=== PATIENT | female | born 1935 | race Caucasian/White ===

== ENCOUNTER 2018-10-20 12:37 | Emergency (ER) | payer MEDICARE, BC ==
[~2018-10-20] VITALS: Wt 75.0 kg
[~2018-10-20 12:37] MED LIST: GLIM2TAB47; HYDROCHLORIZIDE; SAXA2.5T; SIMV40TA3 PO; VALS160T20; [UNRECOGNIZED DRUG - REMARK]
[2018-10-20] MEDS ORDERED: ATOR20TA38 PO (14:01)
[2018-10-20] MEDS ORDERED: GLIM4TAB55 PO (14:02)
[2018-10-20] MEDS ORDERED: CLON-379 PO (14:02)
[2018-10-20] MEDS ORDERED: AMLO5TAB4 PO (14:02)
[2018-10-20] MEDS ORDERED: ALLO100T PO (14:03)
--- NOTE | 2018-10-20 14:43 | ERD ---
ER Documentation Chief Complaint Chief Complaint RIGHT KNEE PAIN AFTER A [facility] FALL HPI Extremely pleasant 83-year-old female who had a mechanical trip and fall just prior to arrival. The patient fell forward landing directly on her right patella. The patient has pain and some difficulty with full extension of the right lower extremity. Limited weightbearing after the fall. She denies any wrist pain arm pain headache or head injury. She notes the pain to be moderate at this time and worse to touch. She is refusing pain medication. ROS All systems reviewed and are negative except as per history of present illness. Medications Home Meds Reported Medications Allopurinol* (Allopurinol*) 100 Mg Tablet, 100 MG PO DAILY, TAB 10/20/18 Amlodipine Besylate* (Norvasc*) 5 Mg Tablet, 5 MG PO BID, TAB 10/20/18 Clonidine Hcl* (Clonidine Hcl*) 0.1 Mg Tab, 0.1 MG PO DAILY, TAB 10/20/18 Glimepiride* (Amaryl*) 4 Mg Tablet, 4 MG PO WITH BREAKFAST DINNE, TAB 10/20/18 Atorvastatin Calcium* (Atorvastatin Calcium*) 20 Mg Tablet, 20 MG PO QHS, #30 TAB 10/20/18 Discontinued Reported Medications [Hydrochlorizide] No Conflict Check 12/19/12 Saxagliptin Hcl* (Onglyza*) 2.5 Mg Tablet, DAILY 12/19/12 Valsartan* (Diovan*) 160 Mg Tablet, BID 12/19/12 Glimepiride* (Amaryl*) 2 Mg Tablet 12/19/12 Simvastatin (Simvastatin) 40 Mg Tablet, 40 MG PO 12/19/12 [Family Advised To Bring Meds] No Conflict Check 12/19/12 Allergies Allergies: Coded Allergies: No Known Drug Allergy (Verified Allergy, Unknown, 10/20/18) PMhx/Soc History of Surgery: Yes (spinal surgery) Anesthesia Reaction: No Hx Neurological Disorder: No Hx Respiratory Disorders: No Hx Cardiac Disorders: Yes (HTN, HIGH CHOLESTEROL) Hx Psychiatric Problems: No Hx Miscellaneous Medical Probl: Yes (arthritis, DM, htn,gout, reanl dse) Hx Alcohol Use: Yes (WINE ON OCCASION) Hx Substance Use: No Hx Tobacco Use: No FmHx Family History: No diabetes Physical Exam Vitals Vital Signs Date Temp Pulse Resp B/P (MAP) Pulse Ox O2 O2 Flow FiO2 Time Delivery Rate 10/20/18 98.1 80 18 174/80 99 12:41 (111) Physical Exam General: Well developed, well nourished, no acute distress Head: Normocephalic, atraumatic. Eyes: Pupils equally reactive, EOM intact ENT: Moist mucous membranes Neck: Supple, no lymphadenopathy, no midline tenderness, deformities, step-offs to the cervical spine, full active and passive range of motion without midline pain. Respiratory: Lungs clear bilaterally, no distress Cardiovascular: RRR, no murmurs, rubs, or gallops Abdominal: Soft, non-tender, non-distended, no peritoneal signs : Deferred MSK: The patient has soft tissue tenderness and deformity to the lower aspect of the right patella. Slight deficit noted with extension of the right lower extremity at the knee. No ligamentous instability. No other bony abnormalities noted. Neurologic: Alert and oriented, moving all extremities, normal speech, no focal weakness, no cerebellar signs Skin: No rash Psych: Normal mood Procedures/MDM EKG, MONITORS, & DIAGNOSTIC IMAGING: X-ray right knee: I reviewed and interpreted multiple views of the x-ray Bones: Comminuted fracture of the right patella, small effusion Soft tissue: No evidence of foreign body PROCEDURES: PROCEDURES: Splint Application Note: Splint type: Knee immobilizer Extremity: Right lower extremity Indication: Patella fracture The patient was consented at bedside prior to splint application and states understanding of risks, benefits, and alternatives. The patient was neurovascularly intact prior to and status post application of the splint. The patient tolerated the procedure well and there were no complications. MEDICAL DECISION MAKING: Patient with clinical signs and symptoms concerning for patella fracture given deficit of extension at the knee. No other bony abnormalities. No head trauma or neck injury. ER COURSE: * The patient's x-ray imaging confirms patella fracture. She has incomplete rupture as she does have some function with extension. Knee immobilizer has been placed. The patient is quite ambulatory and has appropriate help at home. The patient has a walker with her and education for ambulation with knee immobilizer was provided in the emergency room setting. She will likely do well on an outpatient basis. Outpatient orthopedic follow-up strongly recommended. CONSULTATION: Primary care Dr. Sierra notified DISPOSITION PLAN: The patient does not have an identifiable emergent medical condition that warrants inpatient hospitalization at this time. The patient is deemed safe for discharge with outpatient follow-up. We discussed follow up with the patient's primary care doctor within 24 to 48 hours as needed. We also discussed return to the emergency room for worsening symptoms or worsening condition. Outpatient referral: Ortho at [facility] Discharge Medications: OTC motrin and apap Patient refused pain med in ED setting Departure Diagnosis: Primary Impression: Closed fracture of right patella Encounter type: initial encounter Fracture morphology: comminuted Fracture alignment: nondisplaced Qualified Codes: S82.044A - Nondisplaced comminuted fracture of right patella, initial encounter for closed fracture Condition: Stable Patient Instructions: Patella Fracture Referrals: [facility] Hours: Mon-Fri 9:00 AM - 5:00 PM Additional Instructions: Call your primary care doctor TOMORROW for an appointment during the next 1 WEEK.Tell the paralegal legal secretary that you were referred from this facility.See the doctor sooner or return here if your condition worsens before your appointment time. MERY CORTEZ MD Oct 20, 2018 14:43
== END 2018-10-20 15:53 | disposition home or self-care (01) ==
LOC: E/R 12:37
DX: S82.044A Nondisplaced comminuted fracture of right patella, initial encounter for closed fracture (principal); I10 Essential (primary) hypertension; E11.9 Type 2 diabetes mellitus without complications; W18.30XA Fall on same level, unspecified, initial encounter; Y92.9 Unspecified place or not applicable; Z79.84 Long term (current) use of oral hypoglycemic drugs
CPT/HCPCS: 73562

== ENCOUNTER → 2018-11-16 | Outpatient (CLI) | payer MEDICARE, BC ==
[~2018-11-16] MED LIST changes: +ALLO100T PO; +AMLO5TAB4 PO; +ATOR20TA38 PO; +CLON-379 PO; -GLIM2TAB47; +GLIM4TAB55 PO; -HYDROCHLORIZIDE; -SAXA2.5T; -SIMV40TA3 PO; -VALS160T20; -[UNRECOGNIZED DRUG - REMARK]
--- NOTE | 2018-11-16 14:42 | CONS ---
Consult Date/Type/Reason Admit Date/Time Initial Consult Date Date/Time of Note DATE: 11/16/18 TIME: 14:36 Subjective 83-year-old female following up today for right patella fracture. Date of injury was 10/20/2018. She has been in a hinged knee brace locked in full extension. She has been compliant. She has been weightbearing as tolerated with the knee locked in extension. Patient states her swelling has significantly decreased. She denies any pain. Denies any numbness and tingling. Denies any fever or chills. Objective Vitals Weight: 118 pounds Height: 5 foot 2 inches Temperature: 97.9 Heart Rate: 99 Blood Pressure: 169/79 Respiratory Rate: 14 Exam General: Awake, alert, in no acute distress, pleasant and cooperative Heart: regular rhythm Lungs: breathing comfortably, no tachypnea or dyspnea MUSCULOSKELETAL: Right lower extremity Minimal swelling about the knee. Skin is intact. There is no erythema or ecchymosis. Nontender to palpation. There is some swelling at the ankle. Remainder of leg is not swollen. Sensation intact to light touch in a sural, saphenous, deep peroneal, superficial peroneal, medial and lateral plantar nerve distribution. Motor is intact, patient able to dorsiflex and plantarflex ankle and extend and flex great toe. Dorsalis Pedis pulse +2, Brisk capillary refill. Compartments are soft. Calves non-tender to palpation bilaterally. Results/Medications Home Meds Reported Medications Allopurinol* (Allopurinol*) 100 Mg Tablet, 100 MG PO DAILY, TAB 10/20/18 Amlodipine Besylate* (Norvasc*) 5 Mg Tablet, 5 MG PO BID, TAB 10/20/18 Clonidine Hcl* (Clonidine Hcl*) 0.1 Mg Tab, 0.1 MG PO DAILY, TAB 10/20/18 Glimepiride* (Amaryl*) 4 Mg Tablet, 4 MG PO WITH BREAKFAST DINNE, TAB 10/20/18 Atorvastatin Calcium* (Atorvastatin Calcium*) 20 Mg Tablet, 20 MG PO QHS, #30 TAB 10/20/18 Imaging 2 views of the right knee were obtained today. The AP and lateral images were reviewed by me. Redemonstration of comminuted minimally displaced patella fracture. There is some distraction on the anterior aspect however the articular side appears to be well approximated. There is slight displacement and distraction in comparison to previous x-rays. There is likely a patella bipartite component to this picture. Assessment/Plan Hospital Course (Demo Recall) 83-year-old female 1 month status post right patella fracture. She is being treated nonoperatively. There has been some but minimal displacement and her patella fracture since last x-rays. No healing was currently appreciated but clinically she is doing very well with no pain and no swelling. We will cont inue nonoperative management. Plan: Continue hinged knee brace locked in full extension at all times. Allowed to weight-bear as tolerated with knee locked in full extension. Follow-up 2-3 weeks. At that time obtain new nonweightbearing AP and lateral of the right knee. If x-rays are good we will likely allow 0-30 degrees range of motion in the brace when not weightbearing. SANDRO ORTEGA MD Nov 16, 2018 14:42
--- NOTE | 2018-11-19 07:54 | RADRPT ---
PROCEDURE: Right knee radiographs. CLINICAL INDICATION: Right knee pain. TECHNIQUE: Three views. Frontal, lateral, and oblique. COMPARISON: 10/26/2018. FINDINGS: There is a mildly displaced comminuted fracture of the midportion of the patella with no significant change from the prior study. Healing is progressing. There is no new fracture and there is no disloca tion. Articular surfaces are otherwise intact. Vascular calcifications are present consistent with atherosclerosis. There is soft tissue swelling overlying the patella. There is no lytic or blastic lesion. There is no radiopaque foreign body. IMPRESSION: 1. No change from the 10/26/2018 images of the right knee. RPTAT: QQ .Octavio Forde MD, MD Date Time Electronically viewed and signed by .Octavio Forde MD, on 11/19/2018 07:54 .R/
== END | disposition home or self-care (01) ==
LOC: HKI 13:27
PROVIDERS: ATTEND Orthopaedic Surgery Adult Reconstructive Orthopaedic Surgery
DX: S82.001D Unspecified fracture of right patella, subsequent encounter for closed fracture with routine healing (principal); X58.XXXD Exposure to other specified factors, subsequent encounter; R22.41 Localized swelling, mass and lump, right lower limb
CPT/HCPCS: 73560; G0463

== ENCOUNTER → 2018-11-30 | Outpatient (CLI) | payer MEDICARE, BC ==
--- NOTE | 2018-11-30 17:39 | CONS ---
Consult Date/Type/Reason Admit Date/Time Initial Consult Date Date/Time of Note DATE: 11/30/18 TIME: 17:36 Subjective 83-year-old female 6 weeks status post right nondisplaced patella fracture. She has been treated nonoperatively. She has been in a hinged knee brace locked in full extension. She has been weightbearing as tolerated. She has been following her restrictions and precautions. Denies any pain. She is eager to start range of motion. Objective Vitals Weight: 118 pounds Height: 5 feet 2 inches Temperature: 97.9 Heart Rate: 91 Blood Pressure: 171/70 Respiratory Rate: 14 Exam General: Awake, alert, in no acute distress, pleasant and cooperative Heart: regular rhythm Lungs: breathing comfortably, no tachypnea or dyspnea MUSCULOSKELETAL: Right lower extremity: Skin intact. Mild swelling. Tenderness to palpation of the patella. No pain with range of motion 0-45 degrees Sensation intact to light touch in a sural, saphenous, deep peroneal, superficial peroneal, medial and lateral plantar nerve distribution. Motor is intact, patient able to dorsiflex and plantarflex ankle and extend and flex g reat toe. Dorsalis Pedis pulse +2, Brisk capillary refill. Compartments are soft. Calves non-tender to palpation bilaterally. Results/Medications Home Meds Reported Medications Allopurinol* (Allopurinol*) 100 Mg Tablet, 100 MG PO DAILY, TAB 10/20/18 Amlodipine Besylate* (Norvasc*) 5 Mg Tablet, 5 MG PO BID, TAB 10/20/18 Clonidine Hcl* (Clonidine Hcl*) 0.1 Mg Tab, 0.1 MG PO DAILY, TAB 10/20/18 Glimepiride* (Amaryl*) 4 Mg Tablet, 4 MG PO WITH BREAKFAST DINNE, TAB 10/20/18 Atorvastatin Calcium* (Atorvastatin Calcium*) 20 Mg Tablet, 20 MG PO QHS, #30 TAB 10/20/18 Imaging AP and lateral view of the right knee were obtained in clinic today and personally reviewed: These were compared to previous x-rays. There is a nondisplaced transverse patella fracture. There is interval healing. Assessment/Plan Hospital Course (Demo Recall) 83-year-old female 6 weeks status post right patella fracture. The patella fracture is nondisplaced and has been treated nonoperatively. At this time we will start gentle range of motion. Plan: Range of motion 0-30 degrees in brace Brace to be locked in full extension when ambulating. Follow-up in 2 weeks with AP and lateral of the right knee. If things look good progress to 60-70 degrees of flexion SANDRO ORTEGA MD Nov 30, 2018 17:39
--- NOTE | 2018-12-02 17:35 | RADRPT ---
PROCEDURE: XR Right Knee, 1 or 2 views CLINICAL INDICATION: Pain. Follow-up patellar fracture. TECHNIQUE: Frontal and/or lateral views of the right knee. COMPARISON: None FINDINGS: BONES/JOINTS: Fracture of the midportion of the patella noted. The fracture line is slightly less conspicuous, when compared to 11/16/2018, indicating partial healing. No new fracture identified. M edial and lateral joint compartments are preserved. Calcification in the proximal lateral collateral ligament complex, unchanged. No dislocation. SOFT TISSUES: Soft tissue swelling overlying the patella. IMPRESSION: 1. Fracture of the midportion of the patella noted. The fracture line is slightly less conspicuous, when compared to 11/16/2018, indicating partial healing. 2. Soft tissue swelling overlying the patella. This has decreased when compared to 11/16/2018. RPTAT: [facility] Dylan Maxwell Physician Date Time Electronically viewed and signed by Dylan Maxwell Physician Opera Singer on 12/02/2018 17:34 [facility] [place]/
== END | disposition home or self-care (01) ==
LOC: HKI 13:23
PROVIDERS: ATTEND Orthopaedic Surgery Adult Reconstructive Orthopaedic Surgery
DX: Z47.89 Encounter for other orthopedic aftercare (principal); S82.001D Unspecified fracture of right patella, subsequent encounter for closed fracture with routine healing; X58.XXXD Exposure to other specified factors, subsequent encounter
CPT/HCPCS: 73560; G0463

== ENCOUNTER → 2018-12-17 | Outpatient (CLI) | payer MEDICARE, BC ==
--- NOTE | 2018-12-17 16:56 | CONS ---
Consult Date/Type/Reason Admit Date/Time Initial Consult Date Date/Time of Note DATE: 12/17/18 TIME: 16:53 Subjective 83-year-old female 8 weeks status post right nondisplaced patella fracture. She has been treated nonoperatively. She has been in a hinged knee brace 0-30 degrees. She has been weightbearing as tolerated. with brace locked in full extension. She has been following her restrictions and precautions. Denies any pain. She is eager to start range of motion. Denies pain and swelling Objective Vitals Weight: 118 pounds Height: 5 foot 2 inches Heart Rate: 88 Blood Pressure: 195/85 Exam General: Awake, alert, in no acute distress, pleasant and cooperative Heart: regular rhythm Lungs: breathing comfortably, no tachypnea or dyspnea MUSCULOSKELETAL: Right lower extremity: Skin intact. Mild swelling. Tenderness to palpation of the patella. No pain with range of motion 0-90 degrees Sensation intact to light touch in a sural, saphenous, deep peroneal, superficial peroneal, medial and lateral plantar nerve distribution. Motor is intact, patient able to dorsiflex and plantarflex ankle and extend and flex great toe. Dorsalis Pedis pulse +2, Brisk capillary refill. Compartments are soft. Calves non-tender to palpation bilaterally. Results/Medications Home Meds Reported Medications Allopurinol* (Allopurinol*) 100 Mg Tablet, 100 MG PO DAILY, TAB 10/20/18 Amlodipine Besylate* (Norvasc*) 5 Mg Tablet, 5 MG PO BID, TAB 10/20/18 Clonidine Hcl* (Clonidine Hcl*) 0.1 Mg Tab, 0.1 MG PO DAILY, TAB 10/20/18 Glimepiride* (Amaryl*) 4 Mg Tablet, 4 MG PO WITH BREAKFAST DINNE, TAB 10/20/18 Atorvastatin Calcium* (Atorvastatin Calcium*) 20 Mg Tablet, 20 MG PO QHS, #30 TAB 10/20/18 Imaging AP and lateral view of the right knee were obtained in clinic today and personally reviewed: These were compared to previous x-rays. There is a nondisplaced transverse patella fracture. There is significant interval healing. Assessment/Plan Hospital Course (Demo Recall) 83-year-old female 8 weeks status post right patella fracture. The patella fracture is nondisplaced and has been treated nonoperatively and is healing well. Plan: Range of motion 0-90 degrees in brace Brace to be locked in full extension when ambulating. Follow-up in 2 weeks with AP and lateral of the right knee. If things look good ROM exercises without brace. Start PT. Brace when amublating to prevent falls and begin to wean out as quad strength returns. SANDRO ORTEGA MD Dec 17, 2018 16:56
--- NOTE | 2018-12-19 14:35 | RADRPT ---
PROCEDURE: Right knee series CLINICAL INDICATION: Pain TECHNIQUE: AP weightbearing, lateral weightbearing and cross-table lateral views of the right knee were obtained. COMPARISON: Right knee series 11/30/2018 FINDINGS: Continued healing of a right mid patellar fracture. No acute fractures or dislocations. Mild degenera te joint disease of the right knee. No focal bony blastic or lytic lesions. No evidence of right knee joint effusion. Atherosclerotic vascular disease. Soft tissues are unremarkable. IMPRESSION: 1. Continued healing right mid patellar fracture without acute fractures or dislocations. 2. 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 3. No evidence of right knee joint effusion. RPTAT:AAJJ Physician Lalo Date Time Electronically viewed and signed by Matt Lerma Physician on 12/19/2018 11:43 /
== END | disposition home or self-care (01) ==
LOC: HKI 13:16
PROVIDERS: ATTEND Orthopaedic Surgery Adult Reconstructive Orthopaedic Surgery
DX: S82.001D Unspecified fracture of right patella, subsequent encounter for closed fracture with routine healing (principal); X58.XXXD Exposure to other specified factors, subsequent encounter
CPT/HCPCS: 73560; G0463

== ENCOUNTER → 2018-12-28 | Outpatient (CLI) | payer MEDICARE, BC ==
--- NOTE | 2018-12-28 16:08 | CONS ---
Consult Date/Type/Reason Admit Date/Time Initial Consult Date Date/Time of Note DATE: 12/28/18 TIME: 16:05 Subjective 83-year-old female 10 weeks status post nondisplaced right patella fracture. She has been treated nonoperatively. Last visit she was allowed to begin range of motion 0-90 degrees in the brace. She has been doing this and has had no pain. She denies any fevers and chills. Denies any numbness or tingling. She has no pain. She has been ambulating with the knee locked in full extension. Objective Vitals Weight: 120 pound Height: 5 foot 2 inches Temperature: 90.2 Heart Rate: 91 Blood Pressure: 144/68 Respiratory Rate: 14 Exam General: Awake, alert, in no acute distress, pleasant and cooperative Heart: regular rhythm Lungs: breathing comfortably, no tachypnea or dyspnea MUSCULOSKELETAL: Right lower extremity: Painless range of motion 0-90 degrees. There is some pain and stiffness with flexion beyond 90 degrees. Sensation intact to light touch in a sural, saphenous, deep peroneal, superficial peroneal, medial and lateral plantar nerve distribution. Motor is intact, patient able to dorsiflex and plantarflex ankle and extend and flex great toe. Dorsalis Pedis pulse +2, Brisk capillary refill. Compartments are soft. Calves non-tender to palpation bilaterally. Results/Medications Home Meds Reported Medications Allopurinol* (Allopurinol*) 100 Mg Tablet, 100 MG PO DAILY, TAB 10/20/18 Amlodipine Besylate* (Norvasc*) 5 Mg Tablet, 5 MG PO BID, TAB 10/20/18 Clonidine Hcl* (Clonidine Hcl*) 0.1 Mg Tab, 0.1 MG PO DAILY, TAB 10/20/18 Glimepiride* (Amaryl*) 4 Mg Tablet, 4 MG PO WITH BREAKFAST DINNE, TAB 10/20/18 Atorvastatin Calcium* (Atorvastatin Calcium*) 20 Mg Tablet, 20 MG PO QHS, #30 TAB 10/20/18 Imaging AP lateral of the right knee were obtained today and reviewed in clinic. Demonstrates a healed patella fracture. There remains a defect over the dorsal surface of the patella which has improved somewhat from initial x-rays. Assessment/Plan Hospital Course (Demo Recall) 83-year-old female 10 weeks status post right patella fracture. This was treated nonoperatively. X-rays and clinical exam shows that the patella fracture is healed. At this time she is allowed to have full range of motion of the knee without a brace when not walking. Ideally I would like her to wear the brace while ambulating allowing the brace to bend 45-60 degrees to prevent falls. She will start physical therapy for range of motion, strengthening, stretching. They are to wean and discontinue the brace as she regains quad control and strength. Follow-up 4-5 weeks with new x-rays. SANDRO ORTEGA MD Dec 28, 2018 16:08
--- NOTE | 2018-12-29 18:01 | RADRPT ---
PROCEDURE: Right knee radiographs. CLINICAL INDICATION: Right knee pain. TECHNIQUE: Two views. Frontal and lateral. COMPARISON: 12/17/2018. FINDINGS: There is a healing fracture of the midportion of the patella with satisfactory and unchanged alignmen t. There is no new fracture and there is no dislocation. Fluid is present in the knee joint. Vascular calcifications are present consistent with atheroscleros is. There are mild degenerative changes with small osteophytes noted. There is no lytic or blastic lesion. IMPRESSION: 1. Satisfactory appearance of healing fracture of the patella. 2. No other change from the 12/17/2018 images of the right knee. RPTAT: QQ .Octavio Forde MD, MD Date Time Electronically viewed and signed by .Octavio Forde MD, on 12/29/2018 18:01 .R/
== END | disposition home or self-care (01) ==
LOC: HKI 14:18
PROVIDERS: ATTEND Orthopaedic Surgery Adult Reconstructive Orthopaedic Surgery
DX: S82.001D Unspecified fracture of right patella, subsequent encounter for closed fracture with routine healing (principal); X58.XXXD Exposure to other specified factors, subsequent encounter
CPT/HCPCS: 73560; G0463

== ENCOUNTER → 2019-01-31 | Outpatient (CLI) | payer MEDICARE, BC ==
--- NOTE | 2019-01-31 16:41 | CONS ---
Consult Date/Type/Reason Admit Date/Time Initial Consult Date Date/Time of Note DATE: 01/31/19 TIME: 16:37 Subjective 83-year-old female 15 weeks status post nondisplaced right patella fracture. Patient is doing very well. Denies any pain. She continues to use the hinged knee brace for walking. She has been in physical therapy with much progress. She is using a walker to ambulate. Denies any numbness and tingling. Objective Vitals Weight: 120 pounds Height: 5 feet 2 inches Temperature: 97 point Heart Rate: 579 Blood Pressure: 176/75 Respiratory Rate: 14 Exam General: Awake, alert, in no acute distress, pleasant and cooperative Heart: regular rhythm Lungs: breathing comfortably, no tachypnea or dyspnea MUSCULOSKELETAL: Right lower extremity: Skin intact. Nontender to palpation of the patella. Range of motion 0-130 degrees Sensation intact to light touch in a sural, saphenous, deep peroneal, superficial peroneal, medial and lateral plantar nerve distribution. Motor is in tact, patient able to dorsiflex and plantarflex ankle and extend and flex great toe. Dorsalis Pedis pulse +2, Brisk capillary refill. Compartments are soft. Calves non-tender to palpation bilaterally. Moderate pace. Nonantalgic. Using walker. Results/Medications Home Meds Reported Medications Allopurinol* (Allopurinol*) 100 Mg Tablet, 100 MG PO DAILY, TAB 10/20/18 Amlodipine Besylate* (Norvasc*) 5 Mg Tablet, 5 MG PO BID, TAB 10/20/18 Clonidine Hcl* (Clonidine Hcl*) 0.1 Mg Tab, 0.1 MG PO DAILY, TAB 10/20/18 Glimepiride* (Amaryl*) 4 Mg Tablet, 4 MG PO WITH BREAKFAST DINNE, TAB 10/20/18 Atorvastatin Calcium* (Atorvastatin Calcium*) 20 Mg Tablet, 20 MG PO QHS, #30 TAB 10/20/18 Imaging AP and lateral view of the right knee were obtained today and personally reviewed. Healed nondisplaced patella fracture. Assessment/Plan Hospital Course (Demo Recall) 83-year-old female 15 weeks status post right nondisplaced patella fracture. Her patella fracture is healed. She is doing very well. At this time would like her to continue therapy for continued quad strengthening and gait and balance training. As soon as her strength in her right lower extremity is equal to her on injured left lower extremity she may begin to wean from her walker back to her cane at baseline. Follow-up SANDRO HAQ MD January 31, 2019 16:41
--- NOTE | 2019-02-04 10:15 | RADRPT ---
PROCEDURE: XR right knee CLINICAL INDICATION: Knee pain. TECHNIQUE: AP and lateral views of the right knee were obtained. COMPARISON: 12/28/2018 FINDINGS: There is a healing fracture of the inferior pole of the patella without change since the prior examin ation. A well corticated osseous fragment along the lateral femoral condyle is unchanged. The bone mi neralization is decreased. There are mild tricompartmental degenerative changes of the knee. No acute fracture is seen. There are vascular calcifications in the visualized knee. A small joint effusion i s present. IMPRESSION: 1. Healing fracture of the inferior pole of the patella, unchanged. 2. Osseous demineralization with a small joint effusion. RPTAT: AAEE Physician Kelby Date Time Electronically viewed and signed by Physician Kelby on 02/04/2019 10:14 RF/
== END | disposition home or self-care (01) ==
LOC: HKI 13:32
PROVIDERS: ATTEND Orthopaedic Surgery Adult Reconstructive Orthopaedic Surgery
DX: Z47.89 Encounter for other orthopedic aftercare (principal); S82.001D Unspecified fracture of right patella, subsequent encounter for closed fracture with routine healing; X58.XXXD Exposure to other specified factors, subsequent encounter
CPT/HCPCS: 73560; G0463